=== PATIENT | male | born 1970 | race Caucasian/White ===

== ENCOUNTER 2021-01-10 02:36 | Emergency (ER) | payer BC ==
[2021-01-10] MEDS ORDERED: LIDOCAINE 1% MPF 5 ML VIAL ONE (03:19)
[2021-01-10] MEDS ORDERED: NA CHLORIDE 0.9% 1,000 ML ONE (04:02)
[2021-01-10] MEDS ORDERED: MORPHINE 4 MG/ML SYR ONE (04:02)
[2021-01-10] MEDS ORDERED: LIDOCAINE VISCOUS 2% SOLN 15 ML UDC ONE (04:20)
--- NOTE | 2021-01-10 05:01 | ER ---
Nurse's Notes [facility] Name: Camron Cunha Age: 50 yrs Sex: Male : 1970 Arrival Date: 01/10/2021 Time: 02:38 Bed 6 Private MD: Diagnosis: Paraphimosis Presentation: 01/10 02:48 Chief complaint: Patient states: was washing his penis in the shower, pulled foreskin iw back to clean it and now the foreskin remains retracted, head of penis is red and swollen now , happened about an hour ago, iced it [employer]. Coronavirus screen: At this time, the client does not indicate any symptoms associated with coronavirus-19. Ebola Screen: Patient negative for fever greater than or equal to 101.5 degrees Fahrenheit, and additional compatible Ebola Virus Disease symptoms Patient denies exposure to infectious person. Patient denies travel to an Ebola-affected area in the 21 days before illness onset. No symptoms or risks identified at this time. Initial Sepsis Screen: Does the patient meet any 2 criteria? No. Patient's initial sepsis screen is negative. Does the patient have a suspected source of infection? No. Patient's initial sepsis screen is negative. Risk Assessment: Do you want to hurt yourself or someone else? Patient reports no desire to harm self or others. Onset of symptoms was January 10, 2021. 02:48 Method Of Arrival: Ambulatory iw 02:48 Acuity: ABEL 3 iw Triage Assessment: 02:57 General: Appears in no apparent distress. Behavior is calm, cooperative. Pain: ak2 Complains of pain in pelvis. Historical: - Allergies: 02:52 No Known Allergies; iw - Home Meds: 02:52 Metformin Oral [Active]; iw - PMHx: 02:52 Diabetes - NIDDM; iw - PSHx: 02:52 None; iw - Immunization history:: Adult Immunizations not up to date. - Social history:: Smoking status: Patient denies any tobacco usage or history of. Screenin:55 Abuse screen: Denies threats or abuse. Denies injuries from another. Nutritional ak2 screening: No deficits noted. Tuberculosis screening: No symptoms or risk factors identified. Fall Risk None identified. Assessment: 03:00 General: Appears in no apparent distress. uncomfortable, Behavior is calm, cooperative, rr5 appropriate for age. Pain: Complains of pain in penile Pain currently is 7 out of 10 on a pain scale. Quality of pain is described as aching, Pain began gradually, Is intermittent. Neuro: Level of Consciousness is awake, alert, obeys commands, Oriented to person, place, time. Cardiovascular: Capillary refill < 3 seconds Patient's skin is warm and dry. Respiratory: Airway is patent Respiratory effort is even, unlabored, Respiratory pattern is regular, symmetrical. : Swelling noted on penis. 03:15 Reassessment: provider tried to manual retract the foreskin in penile area unsuccessful.rr5 03:30 Reassessment: Patient appears in no apparent distress at this time. continue on ice rr5 pack applied. 03:50 Reassessment: Patient appears in no apparent distress at this time. Patient is alert, rr5 oriented x 3, equal unlabored respirations, skin warm/dry/pink. provider applied sugar around the penile area. 04:35 Reassessment: Patient appears in no apparent distress at this time. unsuccessful in rr5 retracting foreskin, provider explained the plan for transfer patient agreed for the plan. 05:09 Reassessment: Patient appears in no apparent distress at this time. Patient is alert, rr5 oriented x 3, equal unlabored respirations, skin warm/dry/pink. [facility]. Vital Signs: 02:48 BP 155 / 98; Pulse 93; Resp 16; Temp 98.5; Pulse Ox 100% on R/A; Weight 106.59 kg; iw Height 5 ft. 11 in. (180.34 cm); Pain 6/10; 03:46 BP 107 / 75; Pulse 75; Resp 15; Pulse Ox 99% on 3 lpm NC; rr5 04:37 BP 141 / 75; Pulse 70; Resp 19; Pulse Ox 98% ; rr5 02:48 Body Mass Index 32.78 (106.59 kg, 180.34 cm) iw ED Course: 02:38 Patient arrived in ED. es 02:50 Triage completed. iw 02:53 Arm band placed on. iw 02:55 Joni Atkins is Primary Nurse. ak2 02:55 Kal Ribera MD is Attending Physician. tw4 02:55 Patient has correct armband on for positive identification. ak2 02:55 No provider procedures requiring assistance completed. ak2 03:00 Ice pack to injury. rr5 03:45 Inserted saline lock: 20 gauge in left hand, using aseptic technique. rr5 04:19 initiated a transfer with Marie from [facility] [place]. mw2 04:38 Doc to doc with the Urologist from [facility]. mw2 04:55 doc to doc with the ER doctor from [facility]. mw2 04:58 administrative approval given by Marie Jones/ patient has been accepted to [address] Emergency Room/ Dr. Mercado has accepted the patient in transfer/ report to be called to [phone]. 04:59 COVID swab sent to lab. rr5 Administered Medications: 03:10 Drug: Lidocaine (1 %) 5 mg {Note: given by dr. ribrea.} Route: Infiltration; rr5 04:00 Follow up: Response: No adverse reaction rr5 03:48 Drug: morphine 4 mg {Note: rass 0.} Route: IVP; Site: left hand; rr5 04:56 Follow up: Response: No adverse reaction rr5 03:48 Drug: NS 0.9% 1000 ml Route: IV; Rate: 1 bolus; Site: left hand; rr5 04:30 Follow up: Response: No adverse reaction; IV Status: Completed infusion; IV Intake: rr5 1000ml 04:20 Drug: Viscous Lidocaine Liquid (4 %) 10 ml Route: Mucous Membrane; rr5 05:10 Follow up: Response: No adverse reaction rr5 Intake: 04:30 IV: 1000ml; Total: 1000ml. rr5 Outcome: 05:01 ER care complete, transfer ordered by . tw4 05:46 Transferred by ground EMS to [facility]. ak2 05:46 Condition: good 05:47 Patient left the ED. ak2 Signatures: Roseann Randall Irene, RN MAEVE iw Kal Ribera MD MD 4 Fernando Kahn 2 Polo Becerra RN RN rr5 Joni Atkins ak2 Corrections: (The following items were deleted from the chart) 02:50 02:48 Chief complaint: Patient states: was washing his penis in the shower, pulled iw foreskin back to clean it and now the foreskin remains retracted, head of penis is red and swollen now iw 02:51 02:48 BP 119 / 93; Pulse 84bpm; Resp 16bpm; Pulse Ox 100% RA; Temp 98.5F; 79.38 kg; iw Height 5 ft. 10 in.; BMI: 25.1; iw 04:56 04:38 Doc to doc with the ER doctor from [facility] mw2 mw2
--- NOTE | 2021-01-10 05:02 | EDPHYS ---
Physician Documentation [facility] Name: Camron Cunha Age: 50 yrs Sex: Male : 1970 Arrival Date: 01/10/2021 Time: 02:38 Bed 6 Private MD: ED Physician Kal Ribera HPI: 01/10 04:54 This 50 yrs old Male presents to ER via Ambulatory with complaints of Penile tw4 Injury. 04:54 The patient presents with penile swelling and pain. Onset: The symptoms/episode tw4 began/occurred just prior to arrival, today. Modifying factors: The symptoms are alleviated by nothing, the symptoms are aggravated by movement, pressure. Associated signs and symptoms: The patient has no apparent associated signs or symptoms. Severity of symptoms: At their worst the symptoms were moderate, in the emergency department the symptoms are unchanged. The patient has not experienced similar symptoms in the past. Historical: - Allergies: 02:52 No Known Allergies; iw - Home Meds: 02:52 Metformin Oral [Active]; iw - PMHx: 02:52 Diabetes - NIDDM; iw - PSHx: 02:52 None; iw - Immunization history:: Adult Immunizations not up to date. - Social history:: Smoking status: Patient denies any tobacco usage or history of. ROS: 04:54 Constitutional: Negative for fever, chills, and weight loss, Eyes: Negative for injury, tw4 pain, redness, and discharge, Cardiovascular: Negative for chest pain, palpitations, and edema, Respiratory: Negative for shortness of breath, cough, wheezing, and pleuritic chest pain, Abdomen/GI: Negative for abdominal pain, nausea, vomiting, diarrhea, and constipation, Back: Negative for injury and pain, Skin: Negative for injury, rash, and discoloration, Neuro: Negative for headache, weakness, numbness, tingling, and seizure. 04:54 : Positive for penile pain, Negative for injury or acute deformity, urinary symptoms, urinary frequency, small amounts, hematuria, pelvic pain, burning with urination, bladder incontinence, foul smelling urine. Exam: 04:54 Constitutional: This is a well developed, well nourished patient who is awake, alert, tw4 and in no acute distress. Head/Face: Normocephalic, atraumatic. Chest/axilla: Normal chest wall appearance and motion. Nontender with no deformity. No lesions are appreciated. Cardiovascular: Regular rate and rhythm with a normal S1 and S2. No gallops, murmurs, or rubs. Normal PMI, no JVD. No pulse deficits. Respiratory: Lungs have equal breath sounds bilaterally, clear to auscultation and percussion. No rales, rhonchi or wheezes noted. No increased work of breathing, no retractions or nasal flaring. Abdomen/GI: Soft, non-tender, with normal bowel sounds. No distension or tympany. No guarding or rebound. No evidence of tenderness throughout. Back: No spinal tenderness. No costovertebral tenderness. Full range of motion. MS/ Extremity: Pulses equal, no cyanosis. Neurovascular intact. Full, normal range of motion. 04:54 : Male external genitalia: swelling, of the head of penis and meatus is noted, penile, tenderness, of the head of penis is noted. Vital Signs: 02:48 BP 155 / 98; Pulse 93; Resp 16; Temp 98.5; Pulse Ox 100% on R/A; Weight 106.59 kg; iw Height 5 ft. 11 in. (180.34 cm); Pain 6/10; 03:46 BP 107 / 75; Pulse 75; Resp 15; Pulse Ox 99% on 3 lpm NC; rr5 04:37 BP 141 / 75; Pulse 70; Resp 19; Pulse Ox 98% ; rr5 02:48 Body Mass Index 32.78 (106.59 kg, 180.34 cm) iw MDM: 02:56 Patient medically screened. tw4 04:54 Differential diagnosis: UTI. Data reviewed: vital signs, nurses notes. Data tw4 interpreted: Pulse oximetry: Interpretation: normal. Special discussion: I discussed with the patient/guardian in detail that at this point there is no indication for admission to the hospital. It is understood, however, that if the symptoms persist or worsen the patient needs to return immediately for re-evaluation. 01/10 04:35 Order name: COVID-19 : Document "Date of Symptom Onset" if Symptomatic. rr5 01/10 05:42 Order name: SARS-COV-2 RT PCR EDMA 01/10 03:47 Order name: IV; Complete Time: 03:48 rr5 01/10 03:47 Order name: Ice pack; Complete Time: 03:48 rr5 Administered Medications: 03:10 Drug: Lidocaine (1 %) 5 mg {Note: given by dr. ribera.} Route: Infiltration; rr5 04:00 Follow up: Response: No adverse reaction rr5 03:48 Drug: morphine 4 mg {Note: rass 0.} Route: IVP; Site: left hand; rr5 04:56 Follow up: Response: No adverse reaction rr5 03:48 Drug: NS 0.9% 1000 ml Route: IV; Rate: 1 bolus; Site: left hand; rr5 04:30 Follow up: Response: No adverse reaction; IV Status: Completed infusion; IV Intake: rr5 1000ml 04:20 Drug: Viscous Lidocaine Liquid (4 %) 10 ml Route: Mucous Membrane; rr5 05:10 Follow up: Response: No adverse reaction rr5 Disposition: 01/10/21 05:01 Transfer ordered to [facility]. Diagnosis is Paraphimosis. - Reason for transfer: Higher level of care. - Accepting physician is Dr Mercado. - Condition is Stable. - Problem is new. - Symptoms are unchanged. Signatures: Dispatcher [employer] EDMS Cha Dukes RN MAEVE iw Kal Ribera MD MD tw4 Polo Becerra RN RN rr5 Joni Atkins ak2 Corrections: (The following items were deleted from the chart) 04:45 04:35 CORONAVIRUS ordered. EDMA EDMS 05:47 05:01 01/10/2021 05:01 Transfer ordered to [facility]. ak2 Diagnosis is Paraphimosis. Reason for transfer: Higher level of care. Accepting physician is Dr Mercado. Condition is Stable. Problem is new. Symptoms are unchanged. tw4
[2021-01-10 05:54] VITALS: TEMP 98.5
[2021-01-10 05:56] VITALS: BP 141/75; O2SAT 98
== END 2021-01-10 05:47 | disposition short-term general hospital (02) ==
LOC: ER 02:36
DX: N47.2 Paraphimosis (principal); Z20.822 Contact with and (suspected) exposure to COVID-19; E11.9 Type 2 diabetes mellitus without complications
CPT/HCPCS: U0003; J7030; 96361; 96374; 99285